=== PATIENT | male | born 1945 | race Caucasian/White ===

== ENCOUNTER 2023-12-02 08:00 | Outpatient (CLI) | payer MEDICARE, OTHER ==
--- NOTE | 2023-12-02 16:52 | XRAY Report ---
PROCEDURE: Knee 4 View BILAT INDICATIONS: BILAT KNEE PAIN TECHNIQUE: 4 views of the right and left knee(s) were acquired. COMPARISON: None. FINDINGS: Left knee: Bones: No fractures or dislocations. No suspicious bony lesions. There is moderate to severe join t space narrowing of the left lateral femorotibial compartment with subchondral sclerosis and osteoph ytosis. Moderate in the medial and patellofemoral compartments. Soft tissues: No knee joint effusion. No suspicious soft tissue calcifications or masses. Right knee: Bones: No fractures or dislocations. No suspicious bony lesions. Moderate tricompartmental joint space narrowing, subchondral sclerosis and osteophytosis. Soft tissues: No knee joint effusion. No s uspicious soft tissue calcifications or masses. IMPRESSION: Tricompartmental left knee osteoarthrosis, moderate to severe in the lateral compartment. Moderate tricompartmental osteoarthrosis of the right knee joint. Reviewed by: Daniella June MD on 12/02/2023 4:50 PM PST Approved by: Daniella June MD on 12/02/2023 4:50 PM PST Station ID: [id number]
== END 2023-12-02 23:59 | disposition home or self-care (01) ==
LOC: DI.WOS 08:00
PROVIDERS: ATTEND Orthopaedic Surgery
DX: M17.0 Bilateral primary osteoarthritis of knee (principal)